=== PATIENT | female | born 1980 | race African-American/Black ===

== ENCOUNTER 2018-04-02 12:25 | Emergency (ER) | payer SELFPAY ==
[2018-04-02] MEDS ORDERED: Bupivacaine 0.25% 10 ML VIAL ONE (12:48)
[2018-04-02] MEDS ORDERED: Ketorolac Tromethamine 60 MG/2 ML VIAL ONE (12:53)
== END 2018-04-02 13:25 | disposition home or self-care (01) ==
LOC: ERS 12:25
DX: K02.9 Dental caries, unspecified (principal); K04.7 Periapical abscess without sinus; F17.210 Nicotine dependence, cigarettes, uncomplicated
CPT/HCPCS: 96372; J1885; S0020

== ENCOUNTER 2019-04-09 12:34 | Emergency (ER) | payer SELFPAY ==
[2019-04-09 13:12] LABS: #Basophils 0.1 thou/uL (0.0-0.2); #Eosinphils 0.4 thou/uL (0.0-0.7); #Lymphocytes 1.8 thou/uL (1.20-3.40); #Monocytes 0.6 thou/uL (0.11-0.59); #Neutrophils 3.6 thou/uL (1.40-6.50); %Basophils 0.9 % (0.0-1.0); %Lymphocytes 27.9 % (21.0-51.0); %Monocytes 9.6 % (0.0-10.0); %Neutrophils 55.6 % (42.0-75.0); Hemoglobin 10.7 g/dL (12.0-16.0); Mean Corpuscular HGB CONC 32.8 g/dL (32.0-36.0); Mean Corpuscular Hemoglobin 30.1 pg (27.0-31.0); Mean Corpuscular Volume 91.6 fL (78.0-98.0); Mean Platelet Volume 8.4 fL (7.4-10.4); Platelet Count 246 thou/uL (130-400); RBC Distribution Width 17.1 % (11.5-14.5); Red Blood Cell (RBC) Count 3.55 mill/uL (4.20-5.40); White Blood Cell (WBC) Count 6.5 thou/uL (4.8-10.8)
[2019-04-09 13:39] LABS: ALT (SGPT) 7 U/L (8-55); AST (SGOT) 14 U/L (5-34); Albumin 3.9 g/dL (3.5-5.0); Alkaline Phosphatase 56 U/L (40-150); Anion Gap 10 mmol/L (10-20); BUN (Urea Nitrogen) 12 mg/dL (7.0-18.7); Bilirubin, Total Less than 0.2 mg/dL (0.2-1.2); Calc. Creatinine Clearance 0 mL/min (70-130); Calcium 9.1 mg/dL (7.8-10.44); Carbon Dioxide 26 mmol/L (22-29); Chloride 105 mmol/L (98-107); Estimated GFR-MDRD Greater than 90; Globulin 3.3 g/dL (2.4-3.5); Glucose 81 mg/dL (70-105); Lipase 51 U/L (8-78); Potassium 3.8 mmol/L (3.5-5.1); Protein, Total 7.2 g/dL (6.0-8.3); Sodium 137 mmol/L (136-145)
[2019-04-09 14:17] LABS: Bilirubin Negative (Negative); Blood, Urine Large (Negative); Clarity CLOUDY (Clear); Glucose, Urine (Dipstick) Negative (Negative); Leukocyte Moderate (Negative); Nitrite Negative (Negative); Protein, Urine (Dipstick) 30 mg/dL (Neg-Trace)
[2019-04-09 14:18] LABS: Pregnancy Test - Urine (BHCG) Negative (Negative)
[2019-04-09 14:19] LABS: Pregu Control Background? CLEAR/WHITE (CLR/WHITE); Pregu Control Bar Appear? YES (CONTROL BAR)
[2019-04-09 14:20] LABS: Bacteria/HPF Rare-Few HPF (None Seen); Pathc Cast-AUWi Flag 2.44 (0-2.49); RBC/HPF GREATER THAN 50-TNTC HPF (0-3)
[2019-04-09 14:46] LABS: Hyaline Casts/LPF 0-3 HYALINE CAST LPF (0-3 Hyaline)
[2019-04-09] MEDS ORDERED: Lidocaine 1% PF 5 ML VIAL ONE (15:25)
[2019-04-09] MEDS ORDERED: cefTRIAXone\\ROCEPHIN 1 GM VIAL ONE (15:25)
[2019-04-09] MEDS ORDERED: Azithromycin 250 MG TAB ONE (15:25)
--- NOTE | 2019-04-14 12:26 | EKG ---
Test Reason : SYNCOPE Blood Pressure : / mmHG Vent. Rate : 071 BPM Atrial Rate : 071 BPM P-R Int : 154 ms QRS Dur : 082 ms QT Int : 394 ms P-R-T Axes : 052 051 043 degrees QTc Int : 428 ms Normal sinus rhythm Normal ECG Confirmed by JAYLYN JAMA ([id number]), acquisition editor NOREEN SALINAS ([id number]) on 04/14/2019 12:26:18 PM Referred By: Confirmed By:JAYLYN JAMA
== END 2019-04-09 16:07 | disposition home or self-care (01) ==
LOC: ERS 12:34
DX: N30.91 Cystitis, unspecified with hematuria (principal); R55 Syncope and collapse; F17.210 Nicotine dependence, cigarettes, uncomplicated
CPT/HCPCS: 36415; 80053; 81003; 81015; 81025; 83690; 85025; 93005; J0696; J2001

== ENCOUNTER 2019-07-22 15:40 | Emergency (ER) | payer SELFPAY | END 2019-07-22 16:18 | disposition home or self-care (01) | LOC: ERS 15:40 | DX: S60.410A Abrasion of right index finger, initial encounter (principal); S60.412A Abrasion of right middle finger, initial encounter; S60.414A Abrasion of right ring finger, initial encounter; Z71.6 Tobacco abuse counseling; F17.210 Nicotine dependence, cigarettes, uncomplicated; W26.8XXA Contact with other sharp object(s), not elsewhere classified, initial encounter | CPT/HCPCS: 99406 ==

== ENCOUNTER 2019-09-02 17:28 | Emergency (ER) | payer SELFPAY ==
[2019-09-02] MEDS ORDERED: Ketorolac Tromethamine 30 MG/ML VIAL ONE (17:48)
== END 2019-09-02 18:11 | disposition home or self-care (01) ==
LOC: ERS 17:28
DX: M79.662 Pain in left lower leg (principal); F17.210 Nicotine dependence, cigarettes, uncomplicated
CPT/HCPCS: 96372; 99283; J1885

== ENCOUNTER 2021-10-01 07:16 | Emergency (ER) | payer SELFPAY ==
[2021-10-01] MEDS ORDERED: Ketorolac Tromethamine 30 MG/ML VIAL ONE (08:31)
== END 2021-10-01 09:00 | disposition home or self-care (01) ==
LOC: ERS 07:16
DX: M79.605 Pain in left leg (principal); M19.90 Unspecified osteoarthritis, unspecified site; F17.210 Nicotine dependence, cigarettes, uncomplicated
CPT/HCPCS: 96372; 99283; J1885